=== PATIENT | female | born 1940 | race Two or more races ===

== ENCOUNTER 2022-10-23 05:54 | Emergency (ER) | payer MEDICARE, MEDICAID ==
[~2022-10-23] VITALS: Ht 154.9 cm; Wt 55.3 kg
[2022-10-23 07:38] VITALS: BP 155/65; PULSE 72; RESP 16; TEMP 97.8; O2SAT 97
[2022-10-23] MEDS ORDERED: KETOROLAC TROMETH 30 MG/ML 1ML VIAL IM ONE (07:45)
[2022-10-23] MEDS ORDERED: DexAMETHasone SOD PHOS 10MG/1ML VIAL INJ IM ONE (07:45)
[2022-10-23] MEDS ORDERED: METO25TA93 PO (09:23)
[2022-10-23] MEDS ORDERED: IBUP1TAB5 PO (09:47)
[2022-10-23] MEDS ORDERED: HYDR-4902 PO (09:47)
== END 2022-10-23 10:11 | disposition home or self-care (01) ==
LOC: ER 05:54
DX: S32.048A Other fracture of fourth lumbar vertebra, initial encounter for closed fracture (principal); I10 Essential (primary) hypertension; Z79.899 Other long term (current) drug therapy; Z90.49 Acquired absence of other specified parts of digestive tract; W18.39XA Other fall on same level, initial encounter; Y93.89 Activity, other specified; Y92.89 Other specified places as the place of occurrence of the external cause; Y99.8 Other external cause status
CPT/HCPCS: 72131; 72192; 96372; 99285; J1100; J1885